=== PATIENT | female | born 1975 | race Caucasian/White ===

== ENCOUNTER → 2016-08-12 | Day surgery (SDC) | payer OTHER ==
[~2016-08-12] VITALS: Ht 170.2 cm; Wt 131.5 kg
[~2016-08-12] MED LIST: Depo-Medrol 80mg Vial IARTIC ONE; NKM
--- NOTE | 2016-08-12 08:39 | Pre-Procedure Note/Attestation ---
Pre-Procedure Note/Attestation Complete Prior to Procedure Planned Procedure: not applicable Procedure Narrative: Sympathetic nerve block, ganglion of Impar block. Indications for Procedure Pre-Operative Diagnosis: coccygodynia Attestation I attest that I discussed the nature of the procedure; its benefits; risks and complications; and alternatives (and the risks and benefits of such alternatives ), prior to the procedure, with the patient (or the patient's legal credit and collections representative). I attest that, if there was a reasonable possibility of needing a blood transfusion, the patient (or the patient's legal credit and collections representative) was given the [facility] standardized written summary, pursuant to the Brendon Dain Blood Safety Act ([place] Health and Safety Code # 1645, as amended). I attest that I re-evaluated the patient just prior to the surgery and that there has been no change in the patient's H&P, except as documented below: NAOMI PICKERING M.D. Aug 12, 2016 08:39
--- NOTE | 2016-08-12 08:41 | Short Stay Surgery H&P ---
History of Present Illness History of Present Illness Chief Complaint Pain in the coccyx HPI Tri Santamaria is a 40 year old female who was admitted on for Sacrococcygeal disorders Patient History PAST MEDICAL HISTORY: (1) Coccygodynia Past Surgeries: Social History: Patient History Narrative The patient has a history of severe coccygodynia and has failed conservative treatment. Review of Systems Cardiovascular: Denies: CABG, CAD - stable, CHF, [place], angina, dysrhythmia, hypertension, no symptoms, other, peripheral vascular disease, rheumatic heart disease, see HPI, source of infx - skin, source of infx-indw cath, source of infx-prosthesis, valvular disease Respiratory: Denies: COPD, CPAP, URI, asthma, chronic bronchitis, home 02, no symptoms, other, pneumonia, see HPI, sleep apnea, tuberculosis Skeletal: Denies: no symptoms, osteroarthritis, other, rheumatoid arthritis, see HPI, spinal disc disease, trauma Gastrointestinal: Denies: gastro esophageal reflux disease, hepatitis A,B,C, hiatal hernia, jaundice, no symptoms, obesity, other, peptic ulcer disease, see HPI Genitourinary: Denies: BPH, UTI, dialysis, endstage renal disease, no symptoms , other, renal insufficiency, see HPI, urinary retention Neurologic: Denies: neuro muscular disease, neuropathy, no symptoms, other, see HPI, seizure, stroke/TIA Endocrine: Denies: diabetes - type 1, diabetes - type 2, no symptoms, other, post menopausal, see HPI, thyroid Hematologic: Denies: anemia, coagulopathy, no symptoms, other, prior transfusion, see HPI Physical Exam Labs Laboratory Tests Test 08/12/16 08:25 Urine HCG, Qualitative Pending Skin: normal HENT: normal Heart: normal Lungs: normal Abdomen: normal Extremities: normal Genitourinary: normal Plan Plan of Care Ganglion of Impar block, sympathetic nerve block. Preop Interventions Rest, heat, ice, anti-inflammatories, therapy. Summary of Findings pain of the coccyx Final Diagnosis: (1) Coccygodynia Attestation Are the patient's medical conditions optimized for surgery? Attestation Response: yes NAOMI PICKERING M.D. Aug 12, 2016 08:41
[2016-08-12 08:49] VITALS: BP 134/74
[2016-08-12 09:40] VITALS: BP 114/87
--- NOTE | 2016-08-12 10:38 | Brief Operative Note ---
Immediate Post Operative Note Operative Note Chief Complaint: Pain of the coccyx Pre-op Diagnosis: coccygodynia Procedure: Ganglion impar block, lumbar sympathetic block. Post-op Diagnosis: Coccygodynia Post-op Diagnosis: same as pre-op Findings: consistent w/pre-op dx studies Surgeon: Naomi Zambrano MD I[employer] Design Engineer: none Additional Surgeons: none Anesthesiologist: none Anesthesia: local Specimen: none Complications: none Condition: stable Fluids: none Estimated Blood Loss: none Drains: none Packing: none Tourniquet time: 0 Implant(s) used?: NAOMI Anaya M.D. Aug 12, 2016 10:38
--- NOTE | 2016-08-12 10:40 | Discharge Summary ---
Discharge Summary Hospital Course Date of Admission 08/12/2016 Date of Discharge 08/12/2016 Admitting Diagnosis Coccygodynia Reason for Hospitalization: Short stay HPI Tri Santamaria is a 40 year old female who was admitted on for Sacrococcygeal disorders Consultations none Procedures Ganglion Impar block / lumbar sympathetic block Hospital Course short stay Discharge Condition Upon Discharge: stable Discharge Disposition Patient was discharged to home. Discharge Diagnoses: (1) Coccygodynia Discharge Instructions Discharge Instructions Follow up with: Naomi Pickering MD Diet: regular Activity: okay to shower For Surgical Patients Contact your physician for: bleeding, pain, tenderness, redness, swelling, yellowish discharge in the op. site NAOMI PICKERING M.D. Aug 12, 2016 10:40
--- NOTE | 2016-08-17 10:58 | Operative Note - PDOC ---
Operative Note Operative Note Date of Operation/Procedure: Aug 12, 2016 Chief Complaint: Pain of the coccyx Pre-op Diagnosis: coccygodynia Procedure: Ganglion impar block, lumbar sympathetic block. Post-op Diagnosis: Coccygodynia Post-op Diagnosis: same as pre-op Operative Findings: consistent w/pre-op dx studies Surgeon: Naomi Pickering MD [employer] Programmer: none Additional Surgeons: none Anesthesiologist: none Anesthesia: local Specimen: none Complications: none Condition: stable Fluids: none Estimated Blood Loss: none Drains: none Packing: none Tourniquet time: 0 Implant(s) used?: No Indications for Procedure The patient has a long history of chronic coccygodynia. The patient has failed conservative treatments, which have included rest, medications, procedures, and pelvic physical therapy. She is here today for a diagnostic Ganglion Impar injection/sympathetic nerve block. Description of Procedure : The patient was seen and identified in the preoperative area. After risks, benefits, possible complications, and alternatives were discussed with the patient, the patient agreed to proceed with the procedure and signed the consent. Vital signs were stable. The patient was placed in the prone position and gauze was placed between the buttocks. The sacral area was prepped with betadine x 3 and draped in the usual sterile fashion. Fluoroscopic camera was placed in the lateral view and the anterior-posterior plates of the sacrum were identified with infiltration of the area overlying the sacrococcygeal ligament with 1% lidocaine with epi. Then a 25-gauge, 1.5 inch needle was placed through the sacrococcygeal ligament under fluoroscopic guidance until loss of resistance was met. After negative aspiration of CSF and blood, but no paraesthesias, 1 mL of Isoview M300 contrast dye was injected and then excellent spread along the anterior border of the sacrum was noted. Again, after negative aspiration of CSF and blood with no paraesthesias, the area was infiltrated with 5 mL of block solution with the aid of a small bore extension. Block solution contained 80mg of methylprednisolone and 4 mL of 1% preservative-free Lidocaine. Washout of the contrast was seen. The needle was removed. Skin was cleansed and a bandaid was applied. The patient tolerated the procedure well without complications and was discharged from the recovery room after meeting discharge criteria. Follow up: They will follow up in two weeks. NAOMI PICKERING M.D. Aug 17, 2016 10:58
== END | disposition home or self-care (01) ==
LOC: SUR 08:12
DX: M53.3 Sacrococcygeal disorders, not elsewhere classified (principal)
CPT/HCPCS: 72275; 81025; J1040; 64493

== ENCOUNTER → 2016-09-23 | Day surgery (SDC) | payer OTHER ==
[~2016-09-23] VITALS: Ht 170.2 cm; Wt 124.7 kg
[~2016-09-23] MED LIST changes: +Lidocaine 1% MPF 10mg/ml 5ml ONE
[2016-09-23 09:46] VITALS: BP 138/75
--- NOTE | 2016-09-23 09:49 | Pre-Procedure Note/Attestation ---
Pre-Procedure Note/Attestation Complete Prior to Procedure Planned Procedure: right Procedure Narrative: Ganglion impar and right greater trochanteric bursa block Indications for Procedure Pre-Operative Diagnosis: coccygodynia and hip bursitis Attestation I attest that I discussed the nature of the procedure; its benefits; risks and complications; and alternatives (and the risks and benefits of such alternatives ), prior to the procedure, with the patient (or the patient's legal it sales representative). I attest that, if there was a reasonable possibility of needing a blood transfusion, the patient (or the patient's legal it sales representative) was given the [facility] standardized written summary, pursuant to the Brendon Dain Blood Safety Act ([place] Health and Safety Code # 1645, as amended). I attest that I re-evaluated the patient just prior to the surgery and that there has been no change in the patient's H&P, except as documented below: NAOMI PICKERING M.D. Sep 23, 2016 09:49
--- NOTE | 2016-09-23 10:33 | Short Stay Surgery H&P ---
History of Present Illness History of Present Illness Chief Complaint coccyx pain, hip pain HPI Tri Santamaria is a 41 year old female who was admitted on for lumbosacral intervertebral disc displacement Patient History Allergies: Coded Allergies: No Known Allergies (Unverified , 08/12/16) PAST MEDICAL HISTORY: (1) Bursitis of hip (2) Coccygodynia Past Surgeries: Social History: Patient History Narrative the patient has a history of coccyodynia and right hip bursitis. She has failed conservative treatment. Medication History Scheduled No Known Medications* (NKM - No Known Medications*), 0 ., (Reported) Review of Systems Cardiovascular: Denies: CABG, CAD - stable, CHF, [place], angina, dysrhythmia, hypertension, no symptoms, other, peripheral vascular disease, rheumatic heart disease, see HPI, source of infx - skin, source of infx-indw cath, source of infx-prosthesis, valvular disease Respiratory: Denies: COPD, CPAP, URI, asthma, chronic bronchitis, home 02, no symptoms, other, pneumonia, see HPI, sleep apnea, tuberculosis Skeletal: Reports: trauma Gastrointestinal: Denies: gastro esophageal reflux disease, hepatitis A,B,C, hiatal hernia, jaundice, no symptoms, obesity, other, peptic ulcer disease, see HPI Genitourinary: Reports: other, Denies: BPH, UTI, dialysis, endstage renal disease, no symptoms, renal insufficiency, see HPI, urinary retention Neurologic: Reports: neuropathy, no symptoms Endocrine: Denies: diabetes - type 1, diabetes - type 2, no symptoms, other, post menopausal, see HPI, thyroid Physical Exam Vital Signs Last Vital Signs Date Time Temp Pulse Resp B/P Pulse Ox O2 Delivery O2 Flow Rate FiO2 09/23/16 09:46 97.0 68 18 138/75 96 Room Air Labs Laboratory Tests Test 09/23/16 09:25 Urine HCG, Qualitative Negative Skin: normal HENT: normal Heart: normal Lungs: normal Abdomen: normal Extremities: normal Genitourinary: abnormal Plan Plan of Care ganglion impar block/sympathetic block and right greater trochanteric bursa injection Preop Interventions rest, heat, ice, anti-inflammatories, ganglion impar block, physical therapy. Summary of Findings lumbar disc disease, bursitis Final Diagnosis: Attestation Are the patient's medical conditions optimized for surgery? Attestation Response: yes NAOMI PICKERING M.D. Sep 23, 2016 10:33
--- NOTE | 2016-09-23 13:41 | Brief Operative Note ---
Immediate Post Operative Note Operative Note Chief Complaint: pain of the coccyx and right hip Pre-op Diagnosis: coccygodynia and hip bursitis Procedure: ganglion impar/sympathetic block and right greater trochanteric bursa injection. Post-op Diagnosis: coccygodynia and right hip bursitis. Post-op Diagnosis: same as pre-op Findings: consistent w/pre-op dx studies Surgeon: Naomi Zambrano MD Anesthesiology Fellow: none Additional Surgeons: none Anesthesiologist: none Anesthesia: local Specimen: none Complications: none Condition: stable Fluids: none Estimated Blood Loss: none Drains: none Packing: none Tourniquet time: 0 - min Implant(s) used?: NAOMI Anaya M.D. Sep 23, 2016 13:41
--- NOTE | 2016-09-23 13:56 | Discharge Summary ---
Discharge Summary Hospital Course Date of Admission 09/23/16 Date of Discharge 09/23/2016 Admitting Diagnosis coccygodynia and right hip bursitis. Reason for Hospitalization: short stay HPI Tri Santamaria is a 41 year old female who was admitted on for lumbosacral intervertebral disc displacement Consultations none Procedures sympathetic nerve block/ganglion impar block and right greater trochanteric bursa injection. Hospital Course short stay Discharge Condition Upon Discharge: stable Discharge Disposition Patient was discharged to home. Discharge Diagnoses: (1) Bursitis of hip (2) Coccygodynia Discharge Instructions Discharge Instructions Follow up with: Naomi Pickreing MD Diet: regular Activity: okay to shower For Surgical Patients Dressing Care: may change May shower: Yes Contact your physician for: bleeding, pain, tenderness, redness, swelling, yellowish discharge in the op. site NAOMI PICKERING M.D. Sep 23, 2016 13:56
--- NOTE | 2016-09-23 15:15 | Operative Note - PDOC ---
Operative Note Operative Note Date of Operation/Procedure: Sep 23, 2016 Chief Complaint: pain of the coccyx and right hip Pre-op Diagnosis: coccygodynia and hip bursitis Procedure: ganglion impar/sympathetic block and right greater trochanteric bursa injection. Post-op Diagnosis: coccygodynia and right hip bursitis. Post-op Diagnosis: same as pre-op Operative Findings: consistent w/pre-op dx studies Surgeon: Naomi Pickering MD Inspector Penetrant: none Additional Surgeons: none Anesthesiologist: none Anesthesia: local Specimen: none Complications: none Condition: stable Fluids: none Estimated Blood Loss: none Drains: none Packing: none Tourniquet time: 0 - min Implant(s) used?: No Indications for Procedure The patient has suffered from coccygodynia and has one diagnostic block, which helped remove 50% of the pain. She is here for her second therapeutic injection. Also, she suffers from right hip bursitis and will get a right greater trochanteric bursa injection under fluoroscopic guidance because of her size. Pre procedure VAS 6/10. Description of Procedure The patient was seen and identified in the preoperative area. After risks, benefits, possible complications, and alternatives were discussed with the patient, the patient agreed to proceed with the procedure and signed the consent. Vital signs were stable. The patient was placed in the prone position and gauze was placed between the buttocks. The sacral area was prepped with betadine and draped in the usual sterile fashion. Fluoroscopic camera was placed in the lateral view and the anterior-posterior plates of the sacrum were identified with infiltration of the area overlying the sacrococcygeal ligament with 1% lidocaine. Then a 25-gauge, 3.5 inch needle was placed through the sacrococcygeal ligament under fluoroscopic guidance until loss of resistance was met. After negative aspiration of CSF and blood, but no paraesthesias, 1 mL of Isoview contrast dye was injected and then excellent spread along the anterior border of the sacrum was noted. Again, after negative aspiration of CSF and blood with no paraesthesias, the area was infiltrated with 5 mL of block solution with the aid of a small bore extension. Block solution contained 40mg of methylprednisolone and 4 mL of 1 % preservative -free lidocaine. Washout of the contrast was seen. The needle was removed. Skin was cleansed and a bandaid was applied. The patient was placed on the fluoroscopy table in the left lateral position. The fluoroscope was placed in the AP direction compared to the table. The greater trochanter of the right femur was visualized and the skin overlying it was prepped with betadine. The skin overlying the trochanter was anesthetized with Lidocaine 1% using a 27g 1.5inch needle. A 3-1/2-inch 25-gauge spinal needle was placed through the skin and advanced until it contacted the greater trochanter. After negative aspiration for blood, and no paresthesias, 5 mL of a solution containing 4mL of 1 % preservative-free lidocaine mixed with Depo- Medrol 40mg was injected. Needle was withdrawn, area was cleaned, and a bandaid was applied. The patient was discharged after meeting discharge criteria. Post procedure VAS was 0/10. Follow up: The patient will follow up with the clinic in two weeks. NAOMI PICKERING M.D. Sep 23, 2016 15:15
== END | disposition home or self-care (01) ==
LOC: SUR 09:15
DX: M53.3 Sacrococcygeal disorders, not elsewhere classified (principal); M71.551 Other bursitis, not elsewhere classified, right hip; M51.27 Other intervertebral disc displacement, lumbosacral region; G62.9 Polyneuropathy, unspecified
CPT/HCPCS: 20610; 64520; 77003; 81025; J1040; 64493